=== PATIENT | female | born 1995 | race African-American/Black ===

== ENCOUNTER 2020-07-03 14:39 | Emergency (ER) | payer SELFPAY ==
[~2020-07-03] VITALS: Ht 162.6 cm; Wt 56.0 kg
[2020-07-03 14:53] VITALS: BP 118/48
[2020-07-03 17:43] LABS: CLARITY URINE TURBID (CLEAR); COLOR URINE YELLOW (YELLOW); KETONES URINE NEGATIVE (NEGATIVE); LEUKOCYTE ESTERASE URINE NEGATIVE (NEGATIVE); NITRITE URINE NEGATIVE (NEGATIVE); OCCULT BLOOD URINE NEGATIVE (NEGATIVE); PH URINE 8.5 (4.5-8.0); PROTEIN URINE NEGATIVE (NEGATIVE); UROBILINOGEN URINE 0.2 E.U./dL (0.2-1.0)
== END 2020-07-03 18:38 | disposition home or self-care (01) ==
LOC: ER 15:28
DX: M54.9 Dorsalgia, unspecified (principal)
CPT/HCPCS: 73130; 81003; 99284